=== PATIENT | male | born 1955 | race Caucasian/White ===

== ENCOUNTER 2023-07-19 06:19 | Day surgery (SDC) | payer MEDICARE, SELFPAY ==
[2023-07-09 08:24] VITALS: BMI 32.3
[2023-07-09 09:56] LABS: Hematocrit 37.4 % (39.0-52.0); Hemoglobin 12.7 g/dL (13.0-18.0); Mean Corpuscular Hgb 30.5 pg (27.0-31.0); Mean Corpuscular Volume 89.9 fL (80.0-94.0); Mean Platelet Volume 10.9 fL (7.4-10.4); Platelet Count 188 10^3/uL (130-400); Red Blood Cell Count 4.16 10^6/uL (4.70-6.10); Red Cell Dist. Width 13.1 % (11.5-14.5); White Blood Cell Count 4.8 10^3/uL (4.8-10.8)
[2023-07-19 10:38] VITALS: BP 157/85; BMI 32.3
[2023-07-19] MEDS: CELEBREX 200 MG PO (10:42)
[2023-07-19] MEDS: TYLENOL 1000 MG PO (10:42)
[2023-07-19] MEDS: NORMOSOL-R 1000 IV (10:49)
[2023-07-19 12:30] VITALS: BP 122/78; BP 157/85
[2023-07-19] MEDS: DILAUDID 0.25 MG IV ×2 (12:36→12:42)
[2023-07-19 12:45] VITALS: BP 121/75
[2023-07-19] MEDS: DILAUDID 0.5 MG IV (12:48)
[2023-07-19 13:00] VITALS: BP 113/76
[2023-07-19 13:24] VITALS: BP 122/64; BP 130/80
[2023-07-19 13:40] VITALS: BP 113/65
== END 2023-07-19 13:54 | disposition home or self-care (01) ==
LOC: SDS 06:19
PROVIDERS: ATTENDING PHYSICIAN Orthopaedic Surgery; FAMILY PHYSICIAN Family Medicine
DX: S83.231A Complex tear of medial meniscus, current injury, right knee, initial encounter (principal); X58.XXXA Exposure to other specified factors, initial encounter; M94.261 Chondromalacia, right knee
CPT/HCPCS: 29881; 36415; 85027; 93005

== ENCOUNTER → 2023-10-26 06:25 | Day surgery (SDC) | payer MEDICARE, SELFPAY | LOC: GI 06:25 | PROVIDERS: ATTENDING PHYSICIAN Internal Medicine Gastroenterology | DX: Z12.11 Encounter for screening for malignant neoplasm of colon (principal); D12.2 Benign neoplasm of ascending colon; D12.3 Benign neoplasm of transverse colon; K57.30 Diverticulosis of large intestine without perforation or abscess without bleeding; K64.8 Other hemorrhoids; Z80.0 Family history of malignant neoplasm of digestive organs | CPT/HCPCS: 45380; 88305 ==

== ENCOUNTER → 2025-02-05 14:44 | Outpatient (REF) | payer MEDICARE, SELFPAY | LOC: RAD 14:44 | PROVIDERS: ATTENDING PHYSICIAN Physician Assistant Medical | DX: M54.32 Sciatica, left side (principal); M54.42 Lumbago with sciatica, left side | CPT/HCPCS: 72110 ==

== ENCOUNTER 2025-03-05 08:57 | Outpatient (RCR) | payer MEDICARE, SELFPAY | END 2025-03-05 23:59 | disposition home or self-care (01) | LOC: RPT 08:57 | PROVIDERS: ATTENDING PHYSICIAN Physician Assistant Medical | DX: M54.42 Lumbago with sciatica, left side (principal); Z73.6 Limitation of activities due to disability; M79.605 Pain in left leg | CPT/HCPCS: 97110; 97140; 97162 ==

== ENCOUNTER 2025-04-08 07:36 | Outpatient (RCR) | payer MEDICARE, SELFPAY | END 2025-04-08 23:59 | disposition home or self-care (01) | LOC: RPT 07:36 | PROVIDERS: ATTENDING PHYSICIAN Physician Assistant Medical | DX: M54.42 Lumbago with sciatica, left side (principal); Z73.6 Limitation of activities due to disability; M79.605 Pain in left leg | CPT/HCPCS: 97110; 97140 ==